=== PATIENT | female | born 1955 | race Caucasian/White ===

== ENCOUNTER 2019-04-17 21:21 | Emergency (ER) | payer OTHER ==
--- NOTE | 2019-04-17 21:39 | ED Physician Chart ---
ED Chief Complaint/HPI - Patient Information Date Seen:: 04/17/19 Time Seen:: 21:39 Chief Complaint:: Weakness History of Present Illness:: 63 yo female developed extreme weakness after working in the garden for 3 hours. Pt also had nausea and vomited many time yesterday. Pt continued to feel weak today. Pt had temperature up to 100 F. At ER, her temperature was 99.2 F. Vitals:: Vital Signs - 8 hr 04/17/19 21:25 Temp 99.2 F HR 76 RR 18 BP 139/79 O2 Sat % 96 ED Review of Systems - Review of Systems General/Constitutional: Fever, Chills Skin: No rash Head: Headache ENT: No earache Neck: No neck pain Cardio Vascular: No chest pain Pulmonary: SOB GI: Nausea, Vomiting, No diarrhea Musculoskeletal: No bone or joint pain, No muscle pain Neurological: No focal symptoms, Weakness ED Past Medical History - Past Medical History Past Medical History: HTN Social History: Non Smoker, Alcohol (rarely), No Drug Use Surgical History: Appendectomy, other (bladder lift) Psychiatricy History: Other (history of mild anxiety attack) Family Medical History - Family Member Mother History Unknown: Yes ED Physical Exam - Physical Examination General/Constitutional: Awake, Alert Head: Atraumatic Eyes: PERRL, EOMI Skin: No skin lesions ENMT: Nasal exam nl Neck: No nuchal rigidity Respiratory: Nl effort/Exclusion, No Wheeze/Rhonchi/Rales Cardio Vascular: RRR, No murmur, gallop, rubs, NL S1 S2 GI: No tenderness/rebounding/guarding Extremities: normal strength in all extremities Neuro/Psych: Normal motor strength ED Labs/Radiology/EKG Results - Lab Results Results: Laboratory Last Values WBC 4.5 Th/cmm (4.8-10.8) L 04/17/19 21:49 RBC 4.16 Mil/cmm (3.80-5.10) 04/17/19 21:49 Hgb 12.4 gm/dL (12-16) 04/17/19 21:49 Hct 36.6 % (41.0-60) L 04/17/19 21:49 MCV 87.9 fl (81-100) 04/17/19 21:49 MCH 29.7 pg (27.0-31.0) 04/17/19 21:49 MCHC Differential 33.7 pg (28.0-36.0) 04/17/19 21:49 RDW 13.2 % (11.5-20.0) 04/17/19 21:49 Plt Count 250 Th/cmm (150-400) 04/17/19 21:49 MPV 8.5 fl 04/17/19 21:49 Neutrophils % 70.0 % (40.0-80.0) 04/17/19 21:49 Lymphocytes % 15.8 % (20.0-50.0) L 04/17/19 21:49 Monocytes % 11.0 % (2.0-10.0) H 04/17/19 21:49 Eosinophils % 1.4 % (0.0-5.0) 04/17/19 21:49 Basophils % 1.8 % (0.0-2.0) 04/17/19 21:49 PT 10.4 SECONDS (9.5-11.5) 04/17/19 21:49 INR 1.00 (0.5-1.4) 04/17/19 21:49 PTT (Actin FS) 28.8 SECONDS (26.0-38.0) 04/17/19 21:49 Sodium 135 mEq/L (136-145) L 04/17/19 21:49 Potassium 3.0 mEq/L (3.5-5.1) L 04/17/19 21:49 Chloride 97 mEq/L (98-107) L 04/17/19 21:49 Carbon Dioxide 29.6 mEq/L (21.0-31.0) 04/17/19 21:49 Anion Gap 11.4 (7.0-16.0) 04/17/19 21:49 BUN 16 mg/dL (7-25) 04/17/19 21:49 Creatinine 0.8 mg/dL (0.6-1.2) 04/17/19 21:49 Est GFR ( Amer) > 60.0 ml/min (>90) 04/17/19 21:49 Est GFR (Non-Af Amer) > 60.0 ml/min 04/17/19 21:49 BUN/Creatinine Ratio 20.0 04/17/19 21:49 Glucose 130 mg/dL (70-105) H 04/17/19 21:49 Whole Bld Lactic Acid 0.69 mmol/L (0.60-1.99) 04/17/19 21:49 Calcium 9.1 mg/dL (8.6-10.3) 04/17/19 21:49 Total Bilirubin 0.5 mg/dL (0.3-1.0) 04/17/19 21:49 AST 21 U/L (13-39) 04/17/19 21:49 ALT 19 U/L (7-52) 04/17/19 21:49 Alkaline Phosphatase 63 U/L (34-104) 04/17/19 21:49 Creatine Kinase 87 U/L (30-223) 04/17/19 21:49 Troponin I 0.01 ng/mL (0.01-0.05) 04/17/19 21:49 B-Natriuretic Peptide 54.0 pg/mL (5.0-100.0) 04/17/19 21:49 Total Protein 6.5 gm/dL (6.0-8.3) 04/17/19 21:49 Albumin 4.1 gm/dL (3.7-5.3) 04/17/19 21:49 Globulin 2.4 gm/dL 04/17/19 21:49 Albumin/Globulin Ratio 1.7 (1.0-1.8) 04/17/19 21:49 Lipase 35 U/L (11-82) 04/17/19 23:00 TSH 2.83 uIU/ml (0.34-5.60) 04/17/19 21:49 Urine Source MIDSTREAM 04/17/19 22:30 Urine Color YELLOW 04/17/19 22:30 Urine Clarity SLIGHT HAZY (CLEAR) 04/17/19 22:30 Urine pH 6.5 (4.6 - 8.0) 04/17/19 22:30 Ur Specific [place] <= 1.005 (1.005-1.030) 04/17/19 22:30 Urine Protein NEGATIVE mg/dL (NEGATIVE) 04/17/19 22:30 Urine Glucose (UA) NEGATIVE mg/dL (NEGATIVE) 04/17/19 22:30 Urine Ketones NEGATIVE mg/dL (NEGATIVE) 04/17/19 22:30 Urine Blood SMALL (NEGATIVE) H 04/17/19 22:30 Urine Nitrate NEGATIVE (NEGATIVE) 04/17/19 22:30 Urine Bilirubin NEGATIVE (NEGATIVE) 04/17/19 22:30 Urine Urobilinogen 0.2 E.U./dL (0.2 - 1.0) 04/17/19 22:30 Ur Leukocyte Esterase NEGATIVE (NEGATIVE) 04/17/19 22:30 Urine RBC 0-2 /hpf (0-5) 04/17/19 22:30 Urine WBC NONE SEEN /hpf (0-5) 04/17/19 22:30 Ur Epithelial Cells RARE /lpf (FEW) 04/17/19 22:30 Urine Bacteria NONE SEEN /hpf (NONE SEEN) 04/17/19 22:30 - EKG Interpretations EKG Time:: 21:53 Rate & Rhythm: 70 bpm, sinus rhythm [place]: Normal axis Comments:: No ST, T waves changes ED Assessment - Assessment General Assessment: Hypokalemia Hyponatremia Dehydration Leukopenia Hematuria Assessment/Comments:: CBC, CMP, Trop, CK, BNP, lipase CXR (pt refused), EKG NS 1L IV bolus KCL 40 mEq PO x 1 ED Septic Shock - . Is Septic Shock (SBP<90, OR Lactate>4 mmol\L) present?: No - <6hrs of presentation: Vital Signs: Vital Signs - 8 hr 04/17/19 21:25 Temp 99.2 F HR 76 RR 18 BP 139/79 O2 Sat % 96 ED Reassessment (Disposition) - Reassessment Reassessment Condition:: Improved - Aftercare/Follow up Instructions Notes:: D/c home F/u PCP to repeat UA to further evaluate current finding of small blood in the urine. - Patient Disposition Discharge/Transfer:: Home
[2019-04-17] MEDS: Sodium Chloride 0.9% 1,000 ML IV ONE (21:54)
[2019-04-17 21:58] LABS: % BASOPHILS 1.8 % (0.0-2.0); % EOSINOPHILS 1.4 % (0.0-5.0); % LYMPHOCYTES 15.8 % (20.0-50.0); BASOPHILE ABSOLUTE 0.1 Th/cumm (0-0.2); EOSINOPHILE ABSOLUTE 0.1 Th/cmm (0.1-0.4); HEMATOCRIT 36.6 % (41.0-60); HEMOGLOBIN 12.4 gm/dL (12-16); LYMPHOCYTE ABSOLUTE 0.7 Th/cmm (1.5-3.0); MEAN CELL VOLUME 87.9 fl (81-100); MEAN CORPUSCULAR HEMOGLOBIN 29.7 pg (27.0-31.0); MEAN CORPUSCULAR HGB CONC 33.7 pg (28.0-36.0); MONOCYTE ABSOLUTE 0.5 Th/cmm (0.3-1.0); NEUTROPHILE ABSOLUTE 3.1 Th/cmm (1.8-8.0); PLATELET COUNT 250 Th/cmm (150-400); RED BLOOD COUNT 4.16 Mil/cmm (3.80-5.10); RED CELL DISTRIBUTION WIDTH 13.2 % (11.5-20.0); WHITE BLOOD COUNT 4.5 Th/cmm (4.8-10.8)
[2019-04-17 22:32] LABS: ALB/GLOB RATIO 1.7 (1.0-1.8); ALBUMIN 4.1 gm/dL (3.7-5.3); ALKALINE PHOSPHATASE 63 U/L (34-104); ANION GAP 11.4 (7.0-16.0); BILIRUBIN,TOTAL 0.5 mg/dL (0.3-1.0); BUN - UREA NITROGEN 16 mg/dL (7-25); CALCIUM SERUM 9.1 mg/dL (8.6-10.3); CARBON DIOXIDE 29.6 mEq/L (21.0-31.0); CHLORIDE 97 mEq/L (98-107); CREATININE - SERUM 0.8 mg/dL (0.6-1.2); CREATININE KINASE 87 U/L (30-223); GFR AFRICAN-AMERICAN > 60.0 ml/min (>90); GFR NON AFRICAN-AMERICAN > 60.0 ml/min; GLUCOSE 130 mg/dL (70-105); SGOT 21 U/L (13-39); SGPT/ALT 19 U/L (7-52); SODIUM SERUM 135 mEq/L (136-145); TOTAL PROTEIN,SERUM 6.5 gm/dL (6.0-8.3)
[2019-04-17 22:39] LABS: URINE SOURCE MIDSTREAM
[2019-04-17 22:40] LABS: URINE BILIRUBIN NEGATIVE (NEGATIVE); URINE BLOOD SMALL (NEGATIVE); URINE GLUCOSE (UA) NEGATIVE (NEGATIVE); URINE KETONE NEGATIVE (NEGATIVE); URINE LEUKOCYTE ESTERASE NEGATIVE (NEGATIVE); URINE MICROSCOPIC INDICATED? YES; URINE NITRATE NEGATIVE (NEGATIVE); URINE PH 6.5 (4.6 - 8.0); URINE PROTEIN NEGATIVE (NEGATIVE); URINE UROBILINOGEN 0.2 E.U./dL (0.2 - 1.0)
[2019-04-17] MEDS ORDERED: Potassium Chloride 20 mEq ER Tab PO ONE (22:50)
[2019-04-17] MEDS: Potassium Chloride 20 mEq ER Tab PO ONE (22:53)
[2019-04-17 23:02] LABS: URINE CLARITY SLIGHT HAZY (CLEAR); URINE COLOR YELLOW
[2019-04-17 23:38] LABS: URINE BACTERIA NONE SEEN /hpf (NONE SEEN); URINE EPITHELIAL CELLS RARE /lpf (FEW); URINE RBC 0-2 /hpf (0-5); URINE WBC NONE SEEN /hpf (0-5)
== END 2019-04-17 23:40 | disposition home or self-care (01) ==
LOC: ER 21:21
DX: E87.6 Hypokalemia (principal); E87.1 Hypo-osmolality and hyponatremia; E86.0 Dehydration; D72.819 Decreased white blood cell count, unspecified; R31.9 Hematuria, unspecified; I10 Essential (primary) hypertension; Z90.49 Acquired absence of other specified parts of digestive tract
CPT/HCPCS: 36415-UA; 80053-TC; 81001-TC; 82550-TC; 83605; 83690-TC; 83880-TC; 84443-TC; 84484-TC; 85025-TC; 85610-TC; 93005; J7030